=== PATIENT | female | born 1955 | race Caucasian/White ===

== ENCOUNTER 2016-11-19 20:24 | Inpatient (IN) | payer BC ==
[~2016-11-19] VITALS: Ht 165.1 cm; Wt 81.0 kg
[2016-11-19] MEDS ORDERED: ONDANSETRON INJ 2 MG/ML 2 ML VIAL IV STA (21:49)
[2016-11-19] MEDS ORDERED: MoRPHine SULFATE 4 MG/ML 1 ML CARP\\VIAL IV STA ×2 (21:49→23:51)
[2016-11-19 21:56] LABS: BASO % 0.6 %; BASO ABS # 0.05 K/uL (0-0.2); COMPLETE YES; EOS % 4.8 %; IG% 0.1 %; LYMPH % 35.9 %; LYMPH ABS # 3.12 K/uL (1.2-3.4); MEAN CORPUSCULAR HGB CONC 32.2 g/dl (32-36); MEAN PLATELET VOLUME 10.5 fL (7.4-10.4); MONO % 11.4 %; NEUT % 47.2 %; PLATELET COUNT 283 K/uL (130-400); RED BLOOD COUNT 4.14 M/uL (4.2-5.4)
[2016-11-19] MEDS ORDERED: CYAN500T13 PO (21:59)
[2016-11-19] MEDS ORDERED: BIOF500C2 PO (21:59)
[2016-11-19] MEDS ORDERED: AZEL0.15 NAE (21:59)
[2016-11-19] MEDS ORDERED: MONT1TAB5 PO (21:59)
[2016-11-19] MEDS ORDERED: FEXO1TAB49 PO (21:59)
[2016-11-19] MEDS ORDERED: NZRCR TOP (21:59)
[2016-11-19] MEDS ORDERED: SALI0.6510 NAE (21:59)
[2016-11-19] MEDS ORDERED: [UNRECOGNIZED DRUG - OTHER] PO (21:59)
[2016-11-19] MEDS ORDERED: FLUT0.15 NAE (21:59)
[2016-11-19 22:03] LABS: CALCIUM 8.8 mg/dl (8.5-10.1)
[2016-11-19] MEDS ORDERED: MULT-240 PO (22:04)
[2016-11-19] MEDS ORDERED: OMEG12006 PO (22:04)
[2016-11-19] MEDS ORDERED: COEN1CAP37 PO (22:04)
[2016-11-19] MEDS ORDERED: CALCTAB65 PO (22:04)
[2016-11-19] MEDS ORDERED: ASPI81TA28 PO (22:04)
[2016-11-19] MEDS ORDERED: MISCCAP80 PO (22:04)
[2016-11-19] MEDS ORDERED: GUAI1TAB55 PO (22:04)
[2016-11-19 22:05] LABS: ALT/SGPT 37 U/L (12-78); BLOOD UREA NITROGEN 21 mg/dl (7-18); BUN/CREATININE RATIO 23.7 (10-20); CARBON DIOXIDE 25 mmol/L (21-32); CHLORIDE 109 mmol/L (98-107); CREATININE 0.87 mg/dl (0.60-1.20); GLUCOSE 106 mg/dl (70-99); POTASSIUM 3.8 mmol/L (3.5-5.1); SODIUM 142 mmol/L (136-145)
[2016-11-19] MEDS ORDERED: NAPR1TAB9 PO (22:05)
[2016-11-19 22:08] LABS: ALKALINE PHOSPHATASE 84 U/L (45-117); AST/SGOT 26 U/L (15-37)
[2016-11-19 23:11] LABS: URINE APPEARANCE CLOUDY (CLEAR); URINE BILIRUBIN NEG (NEG); URINE COLOR YELLOW; URINE EPITHELIAL CELL AUTO 0-5 /lpf (0-5); URINE NITRITE POS (NEG); URINE PH 6.5 (4.5-7.5); UROBILINOGEN NEG (NEG)
[2016-11-19 23:16] LABS: MANUAL MICROSCOPIC REQUIRED? NO; REVIEW REQ? NO
[2016-11-20] MEDS ORDERED: CIPROFLOXACIN 400MG / 200ML D5W IV STA (00:25)
[2016-11-20] MEDS ORDERED: ONDANSETRON INJ 2 MG/ML 2 ML VIAL IV STA (01:02)
[2016-11-20] MEDS ORDERED: DiphenhydrAMINE HCL 50 MG/ML VIAL IV STA (01:02)
[2016-11-20 02:30] VITALS: BP 138/85; PULSE 62; TEMP 36.4; O2SAT 100; Ht 165.1 cm; Wt 81.0 kg
--- NOTE | 2016-11-20 02:54 | EMERGENCY ROOM VISIT NOTE ---
History Report prepared by Tremaine: Marissa Eubanks Under the Supervision of: Dr. Ronald Poe M.D. First contact with patient: 21:42 Chief Complaint: ABDOMINAL PAIN Stated Complaint: PAIN IN RIGHT ABDOMINAL AREA - NAUSEA Nursing Triage Summary: Patient reports abdominal pain and nausea for [address] scan done in [place] and they called and told her to go to the ER. The results showed nothing acute. History of Present Illness The patient is a 61 year old female who presents to the Emergency Room with complaints of worsening right sided abdominal pain beginning 8 days prior to arrival. The patient describes the pain as sharp and cramping sensation. She notes that the pain radiates around to her back today. The pain does worsen when she is sitting. She denies the pain radiating down her leg. The patient was seen at [place] yesterday and had a CT of her abdomen and pelvis with contrast done. The results were negative and showed no explanation for cause of her pain. She was told to come to the ED for further testing by her primary physician. No blood work was completed. She denies fever, vomiting, diarrhea, urinary symptoms or abnormal vaginal bleeding or vaginal discharge. 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 A total of 10 systems reviewed and were otherwise negative. Past Medical & Surgical Medical Problems: (1) Chronic pain (2) Pain in pelvis Family History Patient reports no known family medical history. Social History Smoking Status: Former Smoker Smokeless Tobacco Use: No Alcohol Use: none Marital Status: Occupation Status: retired Current/Historical Medications Scheduled Aspirin (Aspirin Ec), 81 MG PO DAILY Azelastine Hcl (Astepro), 2 SPRY SARAI DAILY Bioflavonoid Products (Vitamin C), 2 TABS PO DAILY Calcium Carbonate-Vitamin D (Calcium 500 + D), 1 TAB PO BID Coenzyme Q10 (Ubidecarenone) (Co Q-10), 200 MG PO DAILY Cyanocobalamin (Vitamin B12 500MCG), 500 MCG PO DAILY Fexofenadine Hcl (Emili Allergy), 180 MG PO DAILY Fluticasone Propionate (Nasal) (Flonase Allergy Relief), 1 SPRAY SARAI BID Guaifenesin Ext Rel (Mucinex Ext Rel), 600 MG PO DAILY Ketoconazole (Ketoconazole), 1 APPLN TOP DAILY Montelukast Sodium (Montelukast Sodium), 10 MG PO QAM Multiple Vitamins W/ Minerals (Womens One Daily), 1 TAB PO DAILY [place]-3 Fatty Acids ([place] 3), 1 CAP PO DAILY Probiotic Product (Probiotic), 1 CAP PO DAILY Zinc Sulfate W/ Vitamin C (Zinc/Vitamin C), 1 MANINDER PO DAILY Scheduled PRN Naproxen (Aleve), 220 MG PO Q12 PRN for Pain Saline ([place] Nasal [place]), 1 SPRAY SARAI BID PRN for Nasal Congestion Allergies Coded Allergies: Epinephrine (Verified Allergy, Severe, Hypotension, 11/19/16) Fainting Iodinated Diagnostic Agents (Verified Allergy, Severe, High, 11/19/16) Lidocaine (Verified Allergy, Severe, Hypotension, 11/19/16) Fainting [place]ion (Verified Allergy, Severe, Hives, 11/19/16) Ciclopirox (Verified Allergy, Intermediate, Rash, 11/19/16) Shellfish (Verified Allergy, Mild, Unknown, 11/19/16) Scallops Physical Exam Vital Signs Date Time Temp Pulse Resp B/P Pulse Ox O2 Delivery O2 Flow Rate FiO2 11/20/16 02:20 66 20 131/73 93 11/20/16 01:10 65 18 118/80 94 Room Air 11/19/16 23:57 62 18 114/76 97 Room Air 11/19/16 22:59 59 18 114/74 95 Room Air 11/19/16 22:13 68 16 115/75 99 Room Air 11/19/16 20:41 36.4 64 18 131/84 97 Room Air Physical Exam Constitutional: Vital signs reviewed. Eyes: Pupils are equal round reactive to light. Conjunctiva are noninjected. ENT: Pharynx is clear without erythema or exudate. Mucous membranes are moist. Neck supple without meningeal signs. Respiratory: Clear to auscultation bilaterally. Breath sounds are equal bilaterally. Cardiovascular: Regular rate and rhythm. No rubs or gallops. GI: Soft, nondistended. Right lower quadrant tenderness with no guarding. Bowel sounds are present. Musculoskeletal: No peripheral edema. No CVA tenderness. Integumentary: No cyanosis. Neurological: The patient is awake and alert. No focal deficits. Negative straight leg test. Psychiatric: Normal affect. Medical Decision & Procedures Laboratory Results 11/19/16 21:37 Red Blood Count 4.14, Mean Corpuscular Volume 87.0, Mean Corpuscular Hemoglobin 28.0, Mean Corpuscular Hemoglobin Concent 32.2, Mean Platelet Volume 10.5, Neutrophils (%) (Auto) 47.2, Lymphocytes (%) (Auto) 35.9, Monocytes (%) (Auto) 11.4, Eosinophils (%) (Auto) 4.8, Basophils (%) (Auto) 0.6, Neutrophils # (Auto ) 4.11, Lymphocytes # (Auto) 3.12, Monocytes # (Auto) 0.99, Eosinophils # (Auto ) 0.42, Basophils # (Auto) 0.05 11/19/16 21:37 Test 11/19/16 21:37 11/19/16 22:55 White Blood Count 8.70 K/uL (4.8-10.8) Red Blood Count 4.14 M/uL (4.2-5.4) Hemoglobin 11.6 g/dL (12.0-16.0) Hematocrit 36.0 % (37-47) Mean Corpuscular Volume 87.0 fL (80-100) Mean Corpuscular Hemoglobin 28.0 pg (25-34) Mean Corpuscular Hemoglobin Concent 32.2 g/dl (32-36) Platelet Count 283 K/uL (130-400) Mean Platelet Volume 10.5 fL (7.4-10.4) Neutrophils (%) (Auto) 47.2 % Lymphocytes (%) (Auto) 35.9 % Monocytes (%) (Auto) 11.4 % Eosinophils (%) (Auto) 4.8 % Basophils (%) (Auto) 0.6 % Neutrophils # (Auto) 4.11 K/uL (1.4-6.5) Lymphocytes # (Auto) 3.12 K/uL (1.2-3.4) Monocytes # (Auto) 0.99 K/uL (0.11-0.59) Eosinophils # (Auto) 0.42 K/uL (0-0.5) Basophils # (Auto) 0.05 K/uL (0-0.2) RDW Standard Deviation 44.7 fL (36.4-46.3) RDW Coefficient of Variation 14.0 % (11.5-14.5) Immature Granulocyte % (Auto) 0.1 % Immature Granulocyte # (Auto) 0.01 K/uL (0.00-0.02) Anion Gap 8.0 mmol/L (3-11) Est Creatinine Clear Calc Drug Dose 73.1 ml/min Estimated GFR () 83.9 Estimated GFR (Non- 72.4 BUN/Creatinine Ratio 23.7 (10-20) Calcium Level 8.8 mg/dl (8.5-10.1) Total Bilirubin 0.3 mg/dl (0.2-1) Direct Bilirubin < 0.1 mg/dl (0-0.2) Aspartate Amino Transf (AST/SGOT) 26 U/L (15-37) Alanine Aminotransferase (ALT/SGPT) 37 U/L (12-78) Alkaline Phosphatase 84 U/L (45-117) Total Protein 6.9 gm/dl (6.4-8.2) Albumin 3.6 gm/dl (3.4-5.0) Lipase 106 U/L (73-393) Urine Color YELLOW Urine Appearance CLOUDY (CLEAR) Urine pH 6.5 (4.5-7.5) Urine Specific [place] 1.020 (1.000-1.030) Urine Protein NEG (NEG) Urine Glucose (UA) NEG (NEG) Urine Ketones NEG (NEG) Urine Occult Blood TRACE (NEG) Urine Nitrite POS (NEG) Urine Bilirubin NEG (NEG) Urine Urobilinogen NEG (NEG) Urine Leukocyte Esterase LARGE (NEG) Urine WBC (Auto) >30 /hpf (0-5) Urine RBC (Auto) 5-10 /hpf (0-4) Urine Hyaline Casts (Auto) 1-5 /lpf (0-5) Urine Epithelial Cells (Auto) 0-5 /lpf (0-5) Urine Bacteria (Auto) 4+ (NEG) Laboratory results as reviewed by me. Medications Administered Medications (Trade) Dose Ordered Sig/Tena Route Start Time Stop Time Status Last Admin Dose Admin Morphine Sulfate (MoRPHine SULFATE INJ) 4 mg ONE STAT IV 11/19/16 21:49 11/19/16 21:51 DC 11/19/16 21:57 4 MG Ondansetron HCl (Zofran Inj) 4 mg NOW STAT IV 11/19/16 21:49 11/19/16 21:51 DC 11/19/16 21:57 4 MG Morphine Sulfate (MoRPHine SULFATE INJ) 4 mg NOW STAT IV 11/19/16 23:51 11/19/16 23:53 DC 11/19/16 23:56 4 MG Ciprofloxacin/ Dextrose (Cipro / D5w) 400 mg NOW STAT IV 11/20/16 00:25 11/20/16 00:29 DC 11/20/16 00:36 400 MG Diphenhydramine HCl (Benadryl Inj) 50 mg NOW STAT IV 11/20/16 01:02 11/20/16 01:03 DC 11/20/16 01:08 50 MG Ondansetron HCl (Zofran Inj) 4 mg NOW STAT IV 11/20/16 01:02 11/20/16 01:03 DC 11/20/16 01:07 4 MG ED Course 2143: The patient was evaluated in room C9. A complete history and physical exam was performed. 2149: Zofran Inj 4 mg IV, Morphine Sulfate Inj 4 mg IV. 2234: The patient is feeling better. I reviewed blood test and CT results with her. She is trying to give a urine sample. 0024: I talked with the patient and she is feeling better but still has significant pain. She notes that she was on Augmentin for foot infection that she finished one week ago. 0025: Cipro / D5w 400 mg IV. 0035: I spoke with Dr. Clark of [facility] [place]. We discussed the patient and her results. The patient will be further evaluated by Dr. Clark - [facility] [place]. 0101: The patient is experiencing nausea, vomiting, and itching to her legs. The Cipro was stopped. 0102: Zofran Inj 4 mg IV, Benadryl Inj 50 mg IV. Medical Decision This is a 70-year-old female presents with right lower quadrant pain radiating to her back. Differential diagnosis includes appendicitis, colitis, ovarian mass, irritable bowel syndrome, UTI, kidney stone, pyelonephritis. I did perform a limited focused review of portions of the patient's old chart on the electronic medical record. The patient had a CT scan done November 18 that showed diverticulosis without diverticulitis, post surgical changes, small hypodense lesions in the liver, normal kidneys, ventral and umbilical hernia containing fat only. I did evaluate the patient as noted above. The patient is presenting with right lower quadrant pain. She states recently it has started to radiate around her back. She denies any other symptoms. She does state the pain is getting more consistent. She did have a CT yesterday which did not explain her abdominal pain. IV access was established. I did treat her with IV morphine and Zofran. I did order and personally review the patient's urinalysis as described above. She does appear to have a significant UTI. A urine culture was sent. I did order and review the patient's blood work as noted in the electronic medical record. Her white blood cell count is not elevated. LFTs are unremarkable. I did reassess the patient. She does have persistent right flank pain. She was given additional IV morphine. On reexamination she still is feeling rather uncomfortable and so she will be hospitalized for further care and evaluation. I did initially treat her with IV Cipro for pyelonephritis but the patient developed itching to her legs and vomiting after the infusion was started. She has no respiratory complaints. I did stop the Cipro and the patient was given Benadryl IV. I did discuss the case with the hospitalist and welfare case worker. Consults Time Called: 31 Consulting Physician: Dr. Amber KUMARI Returned Call: [phone] Clark of [facility] [place]. We discussed the patient and her results. The patient will be further evaluated by Dr. Amber KUMARI. Impression Primary Impression: Pyelonephritis Scribe Attestation The scribe's documentation has been prepared under my direct and personally reviewed by me in its entirety. I confirm that the note above accurately reflects all work, treatment, procedures, and medical decision making performed by me. Departure Information Dispostion Being Evaluated By Hospitalist Yee Holbrook D.O. (PCP)
[2016-11-20] MEDS ORDERED: CEFTRIAXONE SOD INJ 1 GM in DEXTROSE 5% ADD-VANTAGE 50ML 50 ML IV SCH (04:00)
[2016-11-20] MEDS ORDERED: MELATAB2 PO (04:03)
[2016-11-20] MEDS ORDERED: SODIUM CHLORIDE 0.9% 1000ML 1,000 ML IV SCH (04:15)
--- NOTE | 2016-11-20 05:28 | History and Physical ---
History & Physical Date & Time of Service: Nov 20, 2016 at 04:06 Chief Complaint: Pain In Pelvis Primary Care Physician: Yee Dumont D.O. History of Present Illness Source: patient, spouse, clinic records, hospital records 61 year old female with PMH anemia, dyslipidemia Vit D def presents to the Emergency Room with complaints of worsening right sided pelvis pain that started about 8 days ago. Pt said that the pain is about 7/10 and radiating to her lower back today. The patient describes the pain as sharp and cramping sensation. The pain seems to get worst with sitting and improved when standing. She denies any fever, chills, nausea, dysuria, chest pain, palpitation and SOB. As per significant other pt had some urinary symptoms, but pt denies any symptoms. She saw her PCP yesterday for the the similar pain a CT of her abdomen and pelvis with contrast was done that was negative. Family History Patient reports no known family medical history. Social History Smoking Status: Former Smoker Smokeless Tobacco Use: No Drug Use: none Marital Status: Occupational Status: retired Allergies Coded Allergies: Epinephrine (Verified Allergy, Severe, Hypotension, 11/19/16) Fainting Iodinated Diagnostic Agents (Verified Allergy, Severe, High, 11/19/16) Lidocaine (Verified Allergy, Severe, Hypotension, 11/19/16) Fainting [place] (Verified Allergy, Severe, Hives, 11/19/16) Ciclopirox (Verified Allergy, Intermediate, Rash, 11/19/16) Shellfish (Verified Allergy, Mild, Unknown, 11/19/16) Scallops Home Medications Scheduled Aspirin (Aspirin Ec), 81 MG PO DAILY Azelastine Hcl (Astepro), 2 SPRY SARAI DAILY Bioflavonoid Products (Vitamin C), 2 TABS PO DAILY Calcium Carbonate-Vitamin D (Calcium 500 + D), 1 TAB PO BID Coenzyme Q10 (Ubidecarenone) (Co Q-10), 200 MG PO DAILY Cyanocobalamin (Vitamin B12 500MCG), 500 MCG PO DAILY Fexofenadine Hcl (Emili Allergy), 180 MG PO DAILY Fluticasone Propionate (Nasal) (Flonase Allergy Relief), 1 SPRAY SARAI BID Guaifenesin Ext Rel (Mucinex Ext Rel), 600 MG PO DAILY Ketoconazole (Ketoconazole), 1 APPLN TOP DAILY Melatonin (Melatonin Maximum Strengt), 1 TAB PO HS Montelukast Sodium (Montelukast Sodium), 10 MG PO QAM Multiple Vitamins W/ Minerals (Womens One Daily), 1 TAB PO DAILY [place]-3 Fatty Acids ([place] 3), 1 CAP PO DAILY Probiotic Product (Probiotic), 1 CAP PO DAILY Zinc Sulfate W/ Vitamin C (Zinc/Vitamin C), 1 MANINDER PO DAILY Scheduled PRN Saline ([place] Nasal [place]), 1 SPRAY SARAI BID PRN for Nasal Congestion Review of Systems Constitutional: No chills, No fever, No sweats ENT: No hearing loss, No nasal symptoms, No unusual epistaxis Respiratory: No cough, No sputum, No wheezing Cardiovascular: No chest pain, No orthopnea Abdomen: + problem reported (tenderness in the right border of her pelvis area) , No diarrhea, No nausea, No vomiting Musculoskeletal: No calf pain Genitourinary - Female: No dysuria, No urinary frequency, No urinary urgency Neurologic: No memory loss, No paralysis, No weakness Psychiatric: No substance abuse Endocrine: No fatigue Hematologic / Lymphatic: No night sweats Integumentary: No itch, No rash Physical Exam Vital Signs Date Time Temp Pulse Resp B/P Pulse Ox O2 Delivery O2 Flow Rate FiO2 11/20/16 02:20 66 20 131/73 93 11/20/16 01:10 65 18 118/80 94 Room Air 11/19/16 23:57 62 18 114/76 97 Room Air 11/19/16 22:59 59 18 114/74 95 Room Air 11/19/16 22:13 68 16 115/75 99 Room Air 11/19/16 20:41 36.4 64 18 131/84 97 Room Air General Appearance: WD/WN, no apparent distress Head: normocephalic, atraumatic Eyes: normal inspection, PERRL, EOMI ENT: normal ENT inspection, hearing grossly normal Neck: supple, no JVD Respiratory/Chest: lungs clear, normal breath sounds, no respiratory distress, no accessory muscle use Cardiovascular: regular rate, rhythm, no JVD, no murmur Abdomen/GI: normal bowel sounds, non tender, soft Genitourinary - Female: + pertinent finding (tenderness when palpate the pelvis area) Back: normal inspection, no CVA tenderness, normal range of motion Extremities/Musculoskelatal: normal inspection, no calf tenderness 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, no motor/sensory deficits, alert, normal mood/affect Skin: normal color, warm/dry, no rash Diagnostics Laboratory Results Results Past 24 Hours Test 11/19/16 21:37 11/19/16 22:55 Range/Units White Blood Count 8.70 4.8-10.8 K/uL Red Blood Count 4.14 4.2-5.4 M/uL Hemoglobin 11.6 12.0-16.0 g/dL Hematocrit 36.0 37-47 % Mean Corpuscular Volume 87.0 80-100 fL Mean Corpuscular Hemoglobin 28.0 25-34 pg Mean Corpuscular Hemoglobin Concent 32.2 32-36 g/dl Platelet Count 283 130-400 K/uL Mean Platelet Volume 10.5 7.4-10.4 fL Neutrophils (%) (Auto) 47.2 % Lymphocytes (%) (Auto) 35.9 % Monocytes (%) (Auto) 11.4 % Eosinophils (%) (Auto) 4.8 % Basophils (%) (Auto) 0.6 % Neutrophils # (Auto) 4.11 1.4-6.5 K/uL Lymphocytes # (Auto) 3.12 1.2-3.4 K/uL Monocytes # (Auto) 0.99 0.11-0.59 K/uL Eosinophils # (Auto) 0.42 0-0.5 K/uL Basophils # (Auto) 0.05 0-0.2 K/uL RDW Standard Deviation 44.7 36.4-46.3 fL RDW Coefficient of Variation 14.0 11.5-14.5 % Immature Granulocyte % (Auto) 0.1 % Immature Granulocyte # (Auto) 0.01 0.00-0.02 K/uL Sodium Level 142 136-145 mmol/L Potassium Level 3.8 3.5-5.1 mmol/L Chloride Level 109 98-107 mmol/L Carbon Dioxide Level 25 21-32 mmol/L Anion Gap 8.0 3-11 mmol/L Blood Urea Nitrogen 21 7-18 mg/dl Creatinine 0.87 0.60-1.20 mg/dl Est Creatinine Clear Calc Drug Dose 73.1 ml/min Estimated GFR () 83.9 Estimated GFR (Non- 72.4 BUN/Creatinine Ratio 23.7 10-20 Random Glucose 106 70-99 mg/dl Calcium Level 8.8 8.5-10.1 mg/dl Total Bilirubin 0.3 0.2-1 mg/dl Direct Bilirubin < 0.1 0-0.2 mg/dl Aspartate Amino Transf (AST/SGOT) 26 15-37 U/L Alanine Aminotransferase (ALT/SGPT) 37 12-78 U/L Alkaline Phosphatase 84 45-117 U/L Total Protein 6.9 6.4-8.2 gm/dl Albumin 3.6 3.4-5.0 gm/dl Lipase 106 73-393 U/L Urine Color YELLOW Urine Appearance CLOUDY CLEAR Urine pH 6.5 4.5-7.5 Urine Specific [place] 1.020 1.000-1.030 Urine Protein NEG NEG Urine Glucose (UA) NEG NEG Urine Ketones NEG NEG Urine Occult Blood TRACE NEG Urine Nitrite POS NEG Urine Bilirubin NEG NEG Urine Urobilinogen NEG NEG Urine Leukocyte Esterase LARGE NEG Urine WBC (Auto) >30 0-5 /hpf Urine RBC (Auto) 5-10 0-4 /hpf Urine Hyaline Casts (Auto) 1-5 0-5 /lpf Urine Epithelial Cells (Auto) 0-5 0-5 /lpf Urine Bacteria (Auto) 4+ NEG Microbiology Results 11/19/16 Urine Culture, Received Pending Diagnostic Radiology CT done at [facility] on 11/18 showed no obstruction, no kidney stone Impression Assessment and Plan Right sided Pelvis Pain/Groin Unknown etiology Doubt pyelonephritis CT abdomen and pelvis negative continue analgesic Abnormal UA denies any urinary symptoms afebrile, no wbc received cipro in the ER and developed a reaction with it (rash and vomiting) Will start on Rocephin and if cx negative will d/c abx Left hepatic lesion Need outpatient follow up Hx of Allergic rhinitis continue home meds DVT px on heparin subq CODE status FULL code Level of Care Med/Surg Resuscitation Status FULL RESUSCITATION VTE Prophylaxis VTE Risk Assessment Done? Y/N: Yes Risk Level: Moderate Given or contraindicated: Unfractionated heparin SQ
[2016-11-20] MEDS ORDERED: SODIUM CHLORIDE 0.65% NA SOLN 45 ML (OCEAN) NAE PRN (05:30)
[2016-11-20 07:11] LABS: HEMATOCRIT 35.4 % (37-47); MEAN CELL VOLUME 87.8 fL (80-100); MEAN CORPUSCULAR HEMOGLOBIN 27.5 pg (25-34); MEAN CORPUSCULAR HGB CONC 31.4 g/dl (32-36); PLATELET COUNT 270 K/uL (130-400); RED BLOOD COUNT 4.03 M/uL (4.2-5.4); WHITE BLOOD COUNT 7.93 K/uL (4.8-10.8)
[2016-11-20 07:26] VITALS: BP 123/79; PULSE 66; TEMP 36.6; O2SAT 95
[2016-11-20 07:45] LABS: BUN/CREATININE RATIO 23.6 (10-20); CALCIUM 8.5 mg/dl (8.5-10.1); CREATININE 0.78 mg/dl (0.60-1.20); POTASSIUM 4.4 mmol/L (3.5-5.1)
[2016-11-20] MEDS: CALCIUM 600MG + VIT D 400 IU TAB PO SCH ×2 (07:48→07:53)
[2016-11-20] MEDS: OMEGA-3 (PURIFIED FISH OIL) 1 GM CAP PO SCH ×2 (07:49→07:53)
[2016-11-20] MEDS: ASCORBIC ACID 500 MG TAB PO SCH ×2 (07:49→07:54)
[2016-11-20] MEDS: CEROVITE ADV FORMULA TAB PO SCH ×2 (07:49→07:53)
[2016-11-20] MEDS: CYANOCOBALAMIN 500 MCG TAB (VIT B-12) PO SCH ×2 (07:49→07:54)
[2016-11-20 08:42] LABS: PROTHROMBIN TIME (PATIENT) 10.7 SECONDS (9.0-12.0)
[2016-11-20] MEDS ORDERED: ASPIRIN 81 MG ECTAB PO SCH ×2 (09:00→21:00)
[2016-11-20] MEDS ORDERED: LACTOBACILLUS ACIDOPHILUS (FLORANEX) TAB PO SCH (09:00)
[2016-11-20] MEDS ORDERED: ZINC SULFATE PO SCH (09:00)
[2016-11-20] MEDS ORDERED: MONTELUKAST SOD 10 MG TAB PO SCH (09:00)
[2016-11-20] MEDS ORDERED: [UNRECOGNIZED DRUG - OTHER] PO SCH (09:00)
[2016-11-20] MEDS ORDERED: FEXOFENADINE HCL 180 MG TAB PO SCH (09:00)
[2016-11-20] MEDS ORDERED: KETOCONAZOLE 2% CR 15 GM TUBE EXT SCH (09:00)
[2016-11-20] MEDS ORDERED: GUAIFENESIN 600 MG TABCR PO SCH (09:00)
[2016-11-20] MEDS ORDERED: NON-FORMULARY MEDICATION (Coenzyme Q10 (Ubidecarenone) (Co Q-10) 200 MG) PO SCH (09:00)
[2016-11-20] MEDS ORDERED: FLUTICASONE PROPIONATE NA SPR 16 GM BTL NAE SCH (09:00)
[2016-11-20] MEDS ORDERED: HEPARIN SOD 5000 UNIT/0.5 ML CARP SQ SCH (14:00)
[2016-11-20] MEDS ORDERED: NURSING VERBAL MED ORDER ONE (14:00)
[2016-11-20 15:10] VITALS: BP 106/71; PULSE 71; TEMP 36.7; O2SAT 97
--- NOTE | 2016-11-20 16:56 | Discharge Instructions ---
Discharge Instructions Date of Service Nov 20, 2016. Admission Reason for Admission: Pain In Pelvis Discharge Discharge Diagnosis / Problem: ABDOMINAL PAIN Discharge Goals Goal(s): Decrease discomfort, Improve disease control Activity Recommendations Activity Limitations: resume your previous activity . Instructions / Follow-Up Instructions / Follow-Up HOSPITAL FOLLOW UP ON 11/25/2016 @ 11:[address] Yee Dumont, [facility] MRI OF ABDOMEN WITH AND WITH OUT CONTRAST OUT PATIENT FOR THE INCIDENTAL FINDING OF 2 SMALL HYPODENSE LESION IN LIVER -NOTED IN CT ABDOMEN /PELVIS DONE ON 11/18/16 Current Hospital Diet Patient's current hospital diet: AHA Diet (Heart Healthy), Low Sodium Diet (2gm Na) Discharge Diet Recommended Diet: AHA Diet (Heart Healthy) Pending Studies Studies pending at discharge: no Medical Emergencies . Who to Call and When: Medical Emergencies: If at any time you feel your situation is an emergency, please call 911 immediately. . Non-Emergent Contact Non-Emergency issues call your: Primary Care Provider . . "Provider Documentation" section prepared by Katelin Toure. . VTE Core Measure Inpt VTE Proph given/why not?: Unfractionated heparin SQ
[2016-11-20 16:58] VITALS: BP 106/71; PULSE 71; TEMP 36.7; O2SAT 97
--- NOTE | 2016-11-20 17:12 | Discharge Summary ---
Discharge Summary Date of Service Nov 20, 2016. Discharge Summary Admission Date: Nov 20, 2016 at 01:51 Discharge Date: Nov 20, 2016 Discharge Disposition: Home Principal Diagnosis: ABDOMINAL PAIN Medication Reconciliation Continued Medications: Aspirin (Aspirin Ec) 81 Mg Tab 81 MG PO DAILY Azelastine Hcl (Astepro) 0.15 % Spr 2 SPRY SARAI DAILY, ML Bioflavonoid Products (Vitamin C) 1 Chw Chw 2 TABS PO DAILY Calcium Carbonate-Vitamin D (Calcium 500 + D) 1 Tab Tab 1 TAB PO BID Coenzyme Q10 (Ubidecarenone) (Co Q-10) 200 Mg Cap 200 MG PO DAILY Cyanocobalamin (Vitamin B12 500MCG) 500 Mcg Tab 500 MCG PO DAILY, TAB Fexofenadine Hcl (Emili Allergy) 180 Mg Tab 180 MG PO DAILY, TAB Fluticasone Propionate (Nasal) (Flonase Allergy Relief) 50 Mcg/Act Spr 1 SPRAY SARAI BID Guaifenesin Ext Rel (Mucinex Ext Rel) 600 Mg Tab 600 MG PO DAILY, TAB Ketoconazole (Ketoconazole) 45 Appln/15 Gm Cr 1 APPLN TOP DAILY APPLY TO LEFT GREAT TOE NAIL AND SKIN AROUND THE NAIL Melatonin (Melatonin Maximum Strengt) 5 Mg Tab 1 TAB PO HS for 30 Days, #30 TAB Montelukast Sodium (Montelukast Sodium) 10 Mg Tab 10 MG PO QAM, TAB Multiple Vitamins W/ Minerals (Womens One Daily) 1 Tab Tab 1 TAB PO DAILY [place]-3 Fatty Acids ([place] 3) 1 Cap Cap 1 CAP PO DAILY Probiotic Product (Probiotic) 1 Cap Cap 1 CAP PO DAILY Saline ([place] Nasal [place]) 0.65 % Spr 1 SPRAY SARAI BID PRN for Nasal Congestion Zinc Sulfate W/ Vitamin C (Zinc/Vitamin C) 1 Sho Sho 1 SHO PO DAILY Referrals At Discharge Follow up Referrals: Physician Referral - 11/25/16 with Yee Dumont D.O. Admission Information HPI (per Admitting provider): 61 year old female with PMH anemia, dyslipidemia Vit D def presents to the Emergency Room with complaints of worsening right sided pelvis pain that started about 8 days ago. Pt said that the pain is about 7/10 and radiating to her lower back today. The patient describes the pain as sharp and cramping sensation. The pain seems to get worst with sitting and improved when standing. She denies any fever, chills, nausea, dysuria, chest pain, palpitation and SOB. As per significant other pt had some urinary symptoms, but pt denies any symptoms. She saw her PCP yesterday for the the similar pain a CT of her abdomen and pelvis with contrast was done that was negative. Physical Exam (per Admitting): General Appearance: WD/WN, no apparent distress Head: normocephalic, atraumatic Eyes: normal inspection, PERRL, EOMI ENT: normal ENT inspection, hearing grossly normal Neck: supple, no JVD Respiratory/Chest: lungs clear, normal breath sounds, no respiratory distress, no accessory muscle use Cardiovascular: regular rate, rhythm, no JVD, no murmur Abdomen/GI: normal bowel sounds, non tender, soft Genitourinary - Female: + pertinent finding Back: normal inspection, no CVA tenderness, normal range of motion Extremities/Musculoskelatal: normal inspection, no calf tenderness Neurologic/Psych: templer head II-XII nml as tested, no motor/sensory deficits, alert , normal mood/affect Skin: normal color, warm/dry, no rash Hospital Course pt admitted early this morning with complain of rt groin area pain has been complaining of similar pain for past 8 days No fever or chills no Urinary symptom , no other GI or discomfort was seen in Clinic by her family Physician Dr Dumont on 11/18/[address] abdomen /Pelvis done on 11/18/16 at [facility] no evidence of bowel obstruction , pt is s/p rt hemicolectomy with illeo colic anastomosis-no loculated fluid or mass noted along the anastomosis Incidental finding of small hypodense lesion on left hepatic lobe pt presented to ED with ongoing discomfort blood work was normal -normal white count , BMP , LFT's UA + ve nitrite , leukocyte esterase , trace occult blood , > 30 WBC , > 4 bacteria pt denies of any urinary symptoms Urine culture sent -report was pending while pt being discharge pt was treated with IV Rocephin in ED -complain of abdominal pain /Rt groin discomfort completely resolved no fever or chills no nausea appetite normal -tolerated all meals well pt wanted to be discharged home was upset as was not seen by Hospitalist till late afternoon CT finding updated , offered to send prescription for PO Antibiotic Ciprofloxacin to her Pharmacy , pending urine culture pt refused to have Antibiotic prescribed wants result for urine culture to be reported to her Family physician -and " she will take care of it " Hospital follow up scheduled with Dr Dumont on Friday11/26/16 information given for out pt MRI of abdomen to assess small lesion noted in Left hepatic lobe seen in CT abdomen /pelvis done in [facility] on pt verbalized understanding pt is discharged home today with in stable condition Discharge Instructions Discharge Instructions Date of Service Nov 20, 2016. Admission Reason for Admission: Pain In Pelvis Discharge Discharge Diagnosis / Problem: ABDOMINAL PAIN Discharge Goals Goal(s): Decrease discomfort, Improve disease control Activity Recommendations Activity Limitations: resume your previous activity . Instructions / Follow-Up Instructions / Follow-Up HOSPITAL FOLLOW UP ON 11/25/2016 @ 11:[address] Yee Dumont, [facility] MRI OF ABDOMEN WITH AND WITH OUT CONTRAST OUT PATIENT FOR THE INCIDENTAL FINDING OF 2 SMALL HYPODENSE LESION IN LIVER -NOTED IN CT ABDOMEN /PELVIS DONE ON 11/18/16 Current Hospital Diet Patient's current hospital diet: AHA Diet (Heart Healthy), Low Sodium Diet (2gm Na) Discharge Diet Recommended Diet: AHA Diet (Heart Healthy) Pending Studies Studies pending at discharge: no Medical Emergencies . Who to Call and When: Medical Emergencies: If at any time you feel your situation is an emergency, please call 911 immediately. . Non-Emergent Contact Non-Emergency issues call your: Primary Care Provider . . "Provider Documentation" section prepared by Katelin Toure. . VTE Core Measure Inpt VTE Proph given/why not?: Unfractionated heparin SQ Additional Copies To Yee Dumont D.O.
[2016-11-20] MEDS ORDERED: NON-FORMULARY MEDICATION (Melatonin (Melatonin Maximum Strengt) 1 TAB) PO SCH (21:00)
[2016-11-21] MEDS ORDERED: CPR500 PO (08:03)
--- NOTE | 2016-11-21 10:18 | Progress Note ---
Progress Note Date of Service Nov 21, 2016. Progress Note ATTENDING NOTE : pt was discharged home yesterday Urine culture on 11/19/16 growing gram negative bacilli > 100, 000 CFU/ml isolation and sensitivity pending prescription for Ciprofloxacin 500 mg Po BID X5 days [facility] to [facility] -preferred pharmacy listed as patient left message in Pt's Cell phone regarding Urine culture and need to take antibiotic Pt's Family Physician Dr Dumont updated by clinic staff messaging
[2016-11-21] MEDS ORDERED: LEVO-459 PO (14:51)
--- NOTE | 2016-11-21 14:56 | Progress Note ---
Progress Note Date of Service Nov 21, 2016. Progress Note PT CALLED -HAS HX OF ALLERGIC REACTION TO CIPROFLOXACIN -HAD RASH , NAUSEA ANTIBIOTIC CHANGED TO LEVAQUIN 500 MG PO DAILY X 5 DAYS PRESCRIPTION SENT TO [facility] PT WILL KEEP HER FOLLOW UP APPOINTMENT WITH DR CALIXTO MORIN ON Friday11/25/16
== END 2016-11-20 17:19 | disposition home or self-care (01) | DRG 690 ==
LOC: ENRESERVTM → ENRESERVDT → C.EDB 20:28 → C.MS2W 11-20 01:51
PROVIDERS: ADMIT Internal Medicine; ATTEND Hospitalist
DX: N39.0 Urinary tract infection, site not specified (principal); R10.31 Right lower quadrant pain; L27.0 Generalized skin eruption due to drugs and medicaments taken internally; T36.8X5A Adverse effect of other systemic antibiotics, initial encounter; Y92.238 Other place in hospital as the place of occurrence of the external cause; J30.9 Allergic rhinitis, unspecified; E55.9 Vitamin D deficiency, unspecified; K76.9 Liver disease, unspecified; Z87.891 Personal history of nicotine dependence; Z79.82 Long term (current) use of aspirin; Z79.899 Other long term (current) drug therapy